=== PATIENT | male | born 1955 | race Caucasian/White ===

== ENCOUNTER 2016-05-06 12:24 | Emergency (ER) | payer MEDICAID ==
--- NOTE | 2016-05-06 13:39 | EDPHY ---
H & P Stated Complaint: SI - Personal History Current Tetanus/Diphtheria Vaccine: Yes Current Tetanus Diphtheria and Acellular Pertussis (TDAP): Yes Tetanus Vaccine Date: 2015 - Medical/Surgical History Hx Asthma: No Hx Chronic Respiratory Disease: No Hx Diabetes: No Hx Cardiac Disease: No Hx Renal Disease: No Hx Cirrhosis: No Hx Alcoholism: No Hx HIV/AIDS: No Hx Splenectomy or Spleen Trauma: No Other PMH: IBS, bipolar, anxiety, PTSD, celiac, sleep apnea, osteoporosis R hip , partial laser removal of prostate, dual hernia repair, pseudofolliculiltis, hx concussion - Social History Smoking Status: Former smoker Time Seen by Provider: 05/06/16 12:25 Constitutional: Initial Vital Signs Temperature (C) 36.7 C 05/06/16 12:25 Heart Rate 68 05/06/16 12:25 Respiratory Rate 18 05/06/16 12:25 Blood Pressure 122/71 H 05/06/16 12:25 O2 Sat (%) 96 05/06/16 12:25 O2 Delivery Mode Room Air Allergies/Adverse Reactions: cocoa [chocolate] Allergy (Verified 11/02/15 20:09) egg Allergy (Verified 11/02/15 20:09) gluten Allergy (Verified 11/02/15 20:09) Milk Containing Products [dairy] Allergy (Verified 11/02/15 20:09) plum Allergy (Verified 11/02/15 20:09) oxalates Allergy (Uncoded 05/06/16 13:04) Home Medications: Medication Instructions Recorded Cholecalciferol Vit D3 [Vitamin D3 1,000 units PO DAILY 08/05/15 (*)] Calcium Carbonate [Oyster Shell 750 mg PO BID@ #0 tab 08/10/15 Calcium 500 mg (*)] Cholecalciferol Vit D3 [Vitamin D3 1,000 units PO DAILY #0 tab 08/10/15 (*)] Ergocalciferol [Vitamin D2 (*)] 50,000 i.unit PO Q30D #0 cap 08/10/15 Gabapentin [Neurontin 300 MG (*)] 300 mg PO BID@,15 #0 cap 08/10/15 Gabapentin [Neurontin 300 MG (*)] 600 mg PO HS #0 cap 08/10/15 Magnesium Oxide [Magnesium Oxide 200 mg PO BID@12,17 #0 tab 08/10/15 400 mg (*)] [place]-3 Fatty Acids [Fish Oil 1000 1,000 mg PO DAILY #30 cap 08/10/15 mg (*)] Hyoscyamine 12/22/15 Medical Decision Making ED Course/Re-evaluation: CHIEF COMPLAINT: Psychiatric evaluation HISTORY OF PRESENT ILLNESS: 60-year-old gentleman with a longstanding history of depression and suicidal ideations. He also feels homicidal today. He has no other specific in mind however he is feeling like he is having difficulty controlling his anger and he wants to kill everyone. Denies alcohol or drug abuse REVIEW OF SYSTEMS: A 10 point review of systems was performed and is negative with the exception of the elements mentioned in the history of present illness. PHYSICAL EXAM: General Appearance: Alert, well hydrated, appropriate, and non-toxic appearing. Head: Atraumatic without scalp tenderness or obvious injury Eyes: Pupils equal, round, reactive to light and accommodation, EOMI, no trauma , no injection. Ears: Clear bilaterally, no perforation, normal landmarks Nose: Atraumatic, no rhinorrhea, clear. Throat: There is no erythema or exudates, no lesions, normal tonsils, mucus membranes moist. Neck: Supple, 2+ carotid upstroke, nontender, no lymphadenopathy. Respiratory: No retractions, no distress, no wheezes, and no accessory muscle use. Lungs are clear to auscultation bilaterally. Cardiovascular: Regular rate and rhythm, no murmurs, rubs, or gallops. Bilateral carotid, radial, dorsalis pedis, and posterior tibial pulses intact. Good capillary refill all extremities. Gastrointestinal: Abdomen is soft, nontender, non-distended, no masses, no rebound, no guarding, no peritoneal signs. Musculoskeletal: Normal active ROM of all extremities, atraumatic. Neurological: Alert, appropriate, and interactive. The patient has normal DTRs and non-focal cranial nerves, motor, sensory, and cerebellar exam. Skin: No rashes, good turgor, no nodules on palpation. Past medical history: Depression, suicidal ideation Past surgical history: Noncontributory Family history: Noncontributory Social history: Single, unemployed, denies abuse of tobacco drugs or alcohol DIFFERENTIAL DIAGNOSIS: The differential diagnosis for the patient's depression included but was not limited to functional and major depression, situational depression, medication side effect, drugs, and alcohol abuse. MEDICAL DECISION MAKING: Patient is in no acute distress and is hemodynamically stable. We are awaiting psychiatric team's evaluation. Patient has known history of psychiatric disorders and is here for evaluation. (Magno Torres) Other Provider: I assumed care of the patient at 3:00 p.m. pending psychiatric evaluation. The patient was evaluated by [facility]. He is well known to their service. He does have a history of chronic SI and HI. The patient does feel much better at this point time. Much of his presentation today stems from difficulties with his neighbor. The patient reportedly does have plans to go to mediation to settle some of these issues. The patient denies any acute suicidal ideation or homicidal ideation currently. The patient does contract for safety and would like to be discharged home and follow up with the crisis Center as needed. The case was discussed with the on-call [facility] psychiatrist who recommends vacated in the mental health hold. This was done per their order. (Bro Vee) - Data Points Laboratory Results: Laboratory Results 05/06/16 12:53 05/06/16 12:53 05/06/16 05/06/16 12:55 12:53 WBC 5.22 10^3/uL (3.80-9.50) RBC 4.49 10^6/uL (4.40-6.38) Hgb 13.7 g/dL (13.7-17.5) Hct 41.8 % (40.0-51.0) MCV 93.1 fL (81.5-99.8) MCH 30.5 pg (27.9-34.1) MCHC 32.8 g/dL (32.4-36.7) RDW 11.8 % (11.5-15.2) Plt Count 254 10^3/uL (150-400) MPV 10.6 fL (8.7-11.7) Neut % (Auto) 58.4 % (39.3-74.2) Lymph % (Auto) 31.0 % (15.0-45.0) [place] % (Auto) 7.3 % (4.5-13.0) Eos % (Auto) 1.9 % (0.6-7.6) Baso % (Auto) 1.0 % (0.3-1.7) Nucleat RBC Rel Count 0.0 % (0.0-0.2) Absolute Neuts (auto) 3.05 10^3/uL (1.70-6.50) Absolute Lymphs (auto) 1.62 10^3/uL (1.00-3.00) Absolute Monos (auto) 0.38 10^3/uL (0.30-0.80) Absolute Eos (auto) 0.10 10^3/uL (0.03-0.40) Absolute Basos (auto) 0.05 10^3/uL (0.02-0.10) Absolute Nucleated RBC 0.00 10^3/uL (0-0.01) Immature Gran % 0.4 % (0.0-1.1) Immature Gran # 0.02 10^3/uL (0.00-0.10) Sodium 141 mEq/L (134-144) Potassium 3.9 mEq/L (3.5-5.2) Chloride 105 mEq/L (97-110) Carbon Dioxide 27 mEq/l (22-31) Anion Gap 9 mEq/L (8-16) BUN 19 mg/dL (7-23) Creatinine 0.9 mg/dL (0.7-1.3) Estimated GFR > 60 Glucose 85 mg/dL (70-100) Calcium 9.6 mg/dL (8.5-10.4) Urine Opiates Screen NEGATIVE (NEGATIVE) Urine Barbiturates NEGATIVE (NEGATIVE) Ur Phencyclidine Scrn NEGATIVE (NEGATIVE) Ur Amphetamine Screen NEGATIVE (NEGATIVE) U Benzodiazepines Scrn NEGATIVE (NEGATIVE) Urine Cocaine Screen NEGATIVE (NEGATIVE) U Marijuana (THC) Screen NEGATIVE (NEGATIVE) Ethyl Alcohol < 10 mg/dL (0-10) Medications Given: Discontinued Medications Gabapentin (Neurontin) 300 mg PO EDNOW ONE Stop: 05/06/16 17:04 Last Admin: 05/06/16 17:19 Dose: 300 mg Gabapentin (Neurontin) 300 mg PO EDNOW ONE Stop: 05/06/16 17:20 Last Admin: 05/06/16 17:30 Dose: 300 mg Departure - Departure Disposition: Home, Routine, Self-Care Clinical Impression: Posttraumatic stress disorder, Bipolar 1 disorder with moderate heather Condition: Fair Instructions: Bipolar Disorder (ED) Additional Instructions: 1. Please follow-up with the mental health resources provided in the ED today. 2. [facility] does operate a 24/ psychiatric crisis unit located at [facility] . The telephone number for the 24 hour crisis center is [phone]. 3. Please return to the ED if you are feeling suicidal, having thoughts of harming yourself/others or should you feel unsafe or have worsening symptoms. Referrals: [facility] [Outside] - As per Instructions
[2016-05-06 15:43] LABS: % IMMATURE GRANULYOCYTES 0.4 % (0.0-1.1); ABSOLUTE IMMATURE GRANULOCYTES 0.02 10^3/uL (0.00-0.10); ADD DIFF? NO; ADD MORPH? NO; ADD SCAN? NO; ATYPICAL LYMPHOCYTE FLAG 0 (0-99); FRAGMENT RBC FLAG 0 (0-99); HEMATOCRIT 41.8 % (40.0-51.0); HEMOGLOBIN 13.7 g/dL (13.7-17.5); LEFT SHIFT FLG 0 (0-99); LIPEMIA HEMOLYSIS FLAG 80 (0-99); MEAN CELL HEMOGLOBIN 30.5 pg (27.9-34.1); MEAN CELL HEMOGLOBIN CONCENTR. 32.8 g/dL (32.4-36.7); MEAN CELL VOLUME 93.1 fL (81.5-99.8); MEAN PLATELET VOLUME 10.6 fL (8.7-11.7); PLATELET CLUMPS FLAG 10 (0-99); PLATELET COUNT 254 10^3/uL (150-400); RED BLOOD CELL COUNT 4.49 10^6/uL (4.40-6.38); RED CELL DISTRIBUTION WIDTH 11.8 % (11.5-15.2)
[2016-05-06 15:51] LABS: ANION GAP 9 mEq/L (8-16); CALCIUM 9.6 mg/dL (8.5-10.4); CARBON DIOXIDE 27 mEq/l (22-31); CHLORIDE 105 mEq/L (97-110); CREATININE 0.9 mg/dL (0.7-1.3); ETHANOL SERUM < 10 mg/dL (0-10); GLOMERULAR FILTRATION RATE > 60; GLUCOSE 85 mg/dL (70-100); POTASSIUM 3.9 mEq/L (3.5-5.2); SODIUM 141 mEq/L (134-144)
[2016-05-06] MEDS ORDERED: GABAPENTIN 300 MG CAP PO ONE ×2 (17:03→17:19)
[2016-05-06] MEDS ORDERED: GABAPENTIN 300 MG CAP ONE (17:20)
[2016-05-06 19:50] VITALS: BP 130/73; PULSE 85; RESP 16; TEMP 98.1; O2SAT 97
== END 2016-05-06 19:50 | disposition home or self-care (01) ==
LOC: EDUNIT#
DX: F43.10 Post-traumatic stress disorder, unspecified (principal); F31.12 Bipolar disorder, current episode manic without psychotic features, moderate; Z87.891 Personal history of nicotine dependence
CPT/HCPCS: 80305; G0480

== ENCOUNTER 2016-07-14 22:41 | Emergency (ER) | payer MEDICAID ==
[2016-07-15 00:10] LABS: % IMMATURE GRANULYOCYTES 0.2 % (0.0-1.1); ABSOLUTE IMMATURE GRANULOCYTES 0.01 10^3/uL (0.00-0.10); ADD DIFF? NO; ADD MORPH? NO; ADD SCAN? NO; ATYPICAL LYMPHOCYTE FLAG 50 (0-99); FRAGMENT RBC FLAG 0 (0-99); HEMATOCRIT 38.6 % (40.0-51.0); HEMOGLOBIN 12.8 g/dL (13.7-17.5); LEFT SHIFT FLG 0 (0-99); LIPEMIA HEMOLYSIS FLAG 80 (0-99); MEAN CELL HEMOGLOBIN 30.1 pg (27.9-34.1); MEAN CELL HEMOGLOBIN CONCENTR. 33.2 g/dL (32.4-36.7); MEAN CELL VOLUME 90.8 fL (81.5-99.8); MEAN PLATELET VOLUME 10.1 fL (8.7-11.7); PLATELET CLUMPS FLAG 0 (0-99); PLATELET COUNT 215 10^3/uL (150-400); RED BLOOD CELL COUNT 4.25 10^6/uL (4.40-6.38); RED CELL DISTRIBUTION WIDTH 12.5 % (11.5-15.2)
--- NOTE | 2016-07-15 00:21 | EDPHY ---
H & P Stated Complaint: ABD CRAMPING X 4DAYS, APPT GI NEXT WEEK Time Seen by Provider: 07/14/16 23:20 HPI/ROS: Chief Complaint: Abdominal cramping HPI: 60-year-old male with a history of irritable bowel syndrome presenting complaining of 4-5 days of intermittent abdominal cramping. Patient states this described as a fullness or aching. Denies having any pain. No nausea or vomiting. No constipation. Has had some changes in his stool several days ago but he had normal stools today. No blood or melena. Symptoms have been the same and constant for the last 4 days. He does have an appoint with his recording clerk next week for further evaluation of his irritable bowel syndrome. He states that this is not similar to his irritable bowel. No fevers or chills. He has been recently decreasing his gabapentin dose but states symptoms started about a day before he started changes medications. ROS: 10 point Review of Systems is negative except as noted in the HPI. PMH: Anxiety, irritable bowel, hernia repair, osteoporosis, PTSD Medications: Gabapentin Allergies: Lamictal Social History: No smoking, no alcohol, no recreational drug use Family History: non-contributory Physical Exam: Gen: Awake, Alert, No Distress, thin HEENT: Nose: no rhinorrhea Eyes: PERRLA, EOMI Mouth: Moist mucosa Neck: Supple, no JVD Chest: nontender, lungs clear to auscultation Heart: S1, S2 normal, no murmur Abd: Soft, mild right upper quadrant and epigastric tenderness, no masses or fullness. no guarding Back: no CVA tenderness, no midline tenderness Ext: no edema, non-tender Skin: no rash Neuro: CN II-XII intact, Sensation grossly intact, Strength 5/5 in bilateral upper and lower extremities - Personal History Current Tetanus/Diphtheria Vaccine: Yes Tetanus Vaccine Date: 2015 - Medical/Surgical History Hx Asthma: No Hx Chronic Respiratory Disease: No Hx Diabetes: No Hx Cardiac Disease: No Hx Renal Disease: No Hx Cirrhosis: No Hx Alcoholism: No Hx HIV/AIDS: No Hx Splenectomy or Spleen Trauma: No Other PMH: IBS, bipolar, anxiety, PTSD, celiac, sleep apnea, osteoporosis R hip , partial laser removal of prostate, dual hernia repair, pseudofolliculiltis, hx concussion - Social History Smoking Status: Former smoker Constitutional: Initial Vital Signs Temperature (C) 36.9 C 07/14/16 22:46 Heart Rate 72 07/14/16 22:46 Respiratory Rate 18 07/14/16 22:46 Blood Pressure 90/57 L 07/14/16 22:46 O2 Sat (%) 95 07/14/16 22:46 O2 Delivery Mode Room Air Allergies/Adverse Reactions: cocoa [chocolate] Allergy (Verified 07/14/16 22:43) egg Allergy (Verified 07/14/16 22:43) gluten Allergy (Verified 07/14/16 22:43) lamotrigine [From Lamictal] Allergy (Verified 07/14/16 22:43) Milk Containing Products [dairy] Allergy (Verified 07/14/16 22:43) plum Allergy (Verified 07/14/16:43) oxalates Allergy (Uncoded 07/14/16:43) Home Medications: Medication Instructions Recorded Gabapentin [Neurontin 300 MG (*)] 300 mg PO BID@ #0 cap 08/10/15 Magnesium Oxide [Magnesium Oxide 200 mg PO BID@ #0 tab 08/10/15 400 mg (*)] [place]-3 Fatty Acids [Fish Oil 1000 1,000 mg PO DAILY #30 cap 08/10/15 mg (*)] Hyoscyamine 12/22/15 Calcium Citrate 07/14/16 Medical Decision Making ED Course/Re-evaluation: Blood work shows a mild elevation in unconjugated bilirubin with normal conjugated consistent with Gilbert's syndrome. No other acute abnormalities. Patient has a benign exam otherwise. Will be discharged with follow up with his recording clerk as scheduled next week. - Data Points Laboratory Results: Laboratory Results 07/14/16 23:55 07/14/16 23:55 07/14/16 07/14/16 23:55 23:55 WBC 4.62 10^3/uL 10^3/uL (3.80-9.50) RBC 4.25 10^6/uL L 10^6/uL (4.40-6.38) Hgb 12.8 g/dL L g/dL (13.7-17.5) Hct 38.6 % L % (40.0-51.0) MCV 90.8 fL fL (81.5-99.8) MCH 30.1 pg pg (27.9-34.1) MCHC 33.2 g/dL g/dL (32.4-36.7) RDW 12.5 % % (11.5-15.2) Plt Count 215 10^3/uL 10^3/uL (150-400) MPV 10.1 fL fL (8.7-11.7) Neut % (Auto) 46.2 % % (39.3-74.2) Lymph % (Auto) 41.3 % % (15.0-45.0) Price % (Auto) 9.7 % % (4.5-13.0) Eos % (Auto) 1.5 % % (0.6-7.6) Baso % (Auto) 1.1 % % (0.3-1.7) Nucleat RBC Rel Count 0.0 % % (0.0-0.2) Absolute Neuts (auto) 2.13 10^3/uL 10^3/uL (1.70-6.50) Absolute Lymphs (auto) 1.91 10^3/uL 10^3/uL (1.00-3.00) Absolute Monos (auto) 0.45 10^3/uL 10^3/uL (0.30-0.80) Absolute Eos (auto) 0.07 10^3/uL 10^3/uL (0.03-0.40) Absolute Basos (auto) 0.05 10^3/uL 10^3/uL (0.02-0.10) Absolute Nucleated RBC 0.00 10^3/uL 10^3/uL (0-0.01) Immature Gran % 0.2 % % (0.0-1.1) Immature Gran # 0.01 10^3/uL 10^3/uL (0.00-0.10) Sodium 139 mEq/L mEq/L (134-144) Potassium 3.7 mEq/L mEq/L (3.5-5.2) Chloride 105 mEq/L mEq/L (97-110) Carbon Dioxide 26 mEq/l mEq/l (22-31) Anion Gap 8 mEq/L mEq/L (8-16) BUN 18 mg/dL mg/dL (7-23) Creatinine 1.0 mg/dL mg/dL (0.7-1.3) Estimated GFR > 60 Glucose 77 mg/dL mg/dL (70-100) Calcium 9.9 mg/dL mg/dL (8.5-10.4) Total Bilirubin 1.8 mg/dL H mg/dL (0.1-1.4) Conjugated Bilirubin 0.3 mg/dL mg/dL (0.0-0.5) Unconjugated Bilirubin 1.5 mg/dL H mg/dL (0.0-1.1) AST 48 IU/L IU/L (17-59) ALT 38 IU/L IU/L (21-72) Alkaline Phosphatase 57 IU/L IU/L (38-126) Total Protein 6.2 g/dL L g/dL (6.3-8.2) Albumin 4.1 g/dL g/dL (3.5-5.0) Lipase 71.0 IU/L IU/L (23-300) Departure - Departure Disposition: Home, Routine, Self-Care Clinical Impression: Abdominal cramping Condition: Good Instructions: Abdominal Pain (ED), Gas and Bloating (ED) Additional Instructions: Follow up with your recording clerk next week as scheduled. Return to the emergency department for increasing pain, nausea, vomiting, fevers , chills, or any other concerns. Referrals: Chantal Leavitt, PAC [Primary Care Provider] - As per Instructions
[2016-07-15 00:25] LABS: ALANINE AMINOTRANSFERASE 38 IU/L (21-72); ALBUMIN 4.1 g/dL (3.5-5.0); ALKALINE PHOSPHATASE 57 IU/L (38-126); ANION GAP 8 mEq/L (8-16); ASPARTATE AMINOTRANSFERASE 48 IU/L (17-59); BILIRUBIN,TOTAL 1.8 mg/dL (0.1-1.4); BILIRUBIN-CONJUGATED 0.3 mg/dL (0.0-0.5); BILIRUBIN-UNCONJUGATED 1.5 mg/dL (0.0-1.1); CALCIUM 9.9 mg/dL (8.5-10.4); CARBON DIOXIDE 26 mEq/l (22-31); CHLORIDE 105 mEq/L (97-110); GLOMERULAR FILTRATION RATE > 60; GLUCOSE 77 mg/dL (70-100); POTASSIUM 3.7 mEq/L (3.5-5.2); SODIUM 139 mEq/L (134-144); TOTAL PROTEIN 6.2 g/dL (6.3-8.2)
[2016-07-15 00:51] VITALS: BP 101/54; PULSE 56; RESP 16; TEMP 98.1; O2SAT 97
== END 2016-07-15 00:50 | disposition home or self-care (01) ==
DX: R10.11 Right upper quadrant pain (principal); R10.13 Epigastric pain; Z87.891 Personal history of nicotine dependence

== ENCOUNTER → 2016-08-27 | Outpatient (CLI) | payer MEDICAID | LOC: FIMAGING 11:06 | PROVIDERS: ATTEND Internal Medicine | DX: R31.29 Other microscopic hematuria (principal); N28.1 Cyst of kidney, acquired ==

== ENCOUNTER → 2018-05-08 | Outpatient (CLI) | payer OTHER ==
[~2018-05-08] MED LIST: IOHEXOL 300 mgI/ML (OMNIPAQUE) 150 ML BTL IV ONE
== END ==
LOC: FIMAGING 13:08
PROVIDERS: ATTEND Nurse Practitioner Family
DX: R91.8 Other nonspecific abnormal finding of lung field (principal); E21.3 Hyperparathyroidism, unspecified
CPT/HCPCS: Q9967

== ENCOUNTER → 2018-06-27 | Outpatient (CLI) | payer OTHER | LOC: FCPNEURO 20:00 | PROVIDERS: ATTEND Internal Medicine Sleep Medicine | DX: G47.33 Obstructive sleep apnea (adult) (pediatric) (principal); G47.61 Periodic limb movement disorder ==

== ENCOUNTER → 2018-07-25 | Outpatient (CLI) | payer OTHER | LOC: FCPNEURO 20:00 | PROVIDERS: ATTEND Psychiatry & Neurology Sleep Medicine | DX: G47.31 Primary central sleep apnea (principal); G47.37 Central sleep apnea in conditions classified elsewhere ==

== ENCOUNTER → 2018-09-06 | Outpatient (CLI) | payer OTHER | LOC: FIMAGING 13:08 ==

== ENCOUNTER → 2018-09-28 | Outpatient (CLI) | payer OTHER | LOC: FIMAGING 10:42 ==